=== PATIENT | female | born 1995 | race Caucasian/White ===

== ENCOUNTER 2017-11-09 12:29 | Emergency (ER) | payer MEDICAID ==
[~2017-11-09] VITALS: Ht 182.9 cm; Wt 145.0 kg
[2017-11-09 12:31] VITALS: BP 133/89; PULSE 114; RESP 18; TEMP 98.2; O2SAT 99
--- NOTE | 2017-11-09 13:03 | PD ---
HPI Chief Complaint: Injury Time Seen by Provider: 12:58 Travel History International Travel<30 days: No Contact w/Intl Traveler<30days: No Traveled to known affect area: No History of Present Illness HPI This is a 22-year-old female presents for evaluation of right ankle pain. She reports that yesterday evening she twisted her right ankle in an inversion mechanism and fell. She was able to ambulate yesterday. This morning the pain was worsened and this is what prompted evaluation. Pain is along the lateral aspect of the right ankle with associated soft tissue swelling. Pain is aching , worse when walking, improved when she is not walking. She reports that she has sprained her ankle several times in the past. She has no other complaints at this time. [facility] Past Medical History ?: Not Social History Alcohol Use: No Tobacco Use: No Allergies-Medications (Allergen,Severity, Reaction): Coded Allergies: No Known Allergies (Unverified , 11/09/17) Review of Systems Musculoskeletal: Positive: Limited ROM, Edema, Pain Skin: Positive Other (denies open wounds) Physical Exam Narrative GENERAL: Well-developed well-nourished female in no acute distress SKIN: Warm and dry. Old surgical scar noted to the anterior right foot HEAD: Atraumatic. Normocephalic. EYES: Pupils equal and round. No scleral icterus. No injection or drainage. CARDIOVASCULAR: Regular rate and rhythm. No murmur appreciated. RESPIRATORY: No accessory muscle use. Clear to auscultation. Breath sounds equal bilaterally. MUSCULOSKELETAL: There is soft tissue swelling around the lateral malleolus of the right ankle with associated tenderness to palpation. The Achilles tendon is intact and nontender. There is no tenderness to palpation to the right foot or medial right ankle. There is pain with dorsi and plantar flexion but range of motion is preserved. NEUROLOGICAL: Awake and alert. No obvious cranial nerve deficits. Motor grossly within normal limits. Normal speech. Data Data Last Documented VS Vital Signs Date Time Temp Pulse Resp B/P (MAP) Pulse Ox O2 Delivery O2 Flow Rate FiO2 11/09/17 12:31 98.2 114 18 133/89 (104) 99 Orders Orders Ankle, Complete ([id number]) (11/09/17 ) Ice/Cold Pack (11/09/17 13:00) MDM Medical Decision Making Medical Screen Exam Complete: Yes Emergency Medical Condition: Yes Medical Record Reviewed: Yes Differential Diagnosis Lateral ankle sprain, avulsion fracture, fibular fracture, Lisfranc injury Narrative Course X-ray imaging reveals lateral soft tissue swelling with no acute bony abnormality. The patient is being discharged with ankle stirrup splint and crutches. Diagnosis Primary Impression: Right ankle sprain Additional Instructions: Crutches, ankle stirrup splint as needed. Ice to the affected area several times a day 15 minutes at a time. Follow-up with primary care physician as needed and return for any emergent medical conditions. Med/Other Pt SpecificInfo: Orthopedic Instructions Disposition: 01 DISCHARGE HOME Condition: Stable Sean Monae Nov 09, 2017 13:03
--- NOTE | 2017-11-09 14:07 | RADRPT ---
EXAM DATE/TIME: 11/09/2017 13:16 [facility] COMPARISON: No previous studies available for comparison. INDICATIONS : Right ankle pain; fell lastnight. MEDICAL HISTORY : None. SURGICAL HISTORY : ORIF right ankle. ENCOUNTER: Initial ACUITY: 1 day PAIN SCORE: 5/10 LOCATION: Right lateral ankle. FINDINGS: Significant periarticular soft tissue swelling is noted. The sella is predominantly along the lateral aspect of the joint. A screw is identified in the lateral margin of the talus. Bony structures are i ntact. There is no evidence of acute fracture. CONCLUSION: Soft tissue swelling without evidence of acute fracture or dislocation. Lateral talar screw noted. Filiberto Hong MD on November 09, 2017 at 14:05 Board Certified Radiologist. This report was verified electronically.
== END 2017-11-09 14:30 | disposition home or self-care (01) ==
LOC: NEPK 12:29
DX: S93.401A Sprain of unspecified ligament of right ankle, initial encounter (principal); X50.1XXA Overexertion from prolonged static or awkward postures, initial encounter
CPT/HCPCS: 73610; 99283; E0113; L1906